=== PATIENT | female | born 1975 | race Caucasian/White ===

== ENCOUNTER 2017-06-21 21:49 | Emergency (ER) | payer OTHER ==
[~2017-06-21] VITALS: Ht 167.6 cm; Wt 73.9 kg
[2017-06-21 22:03] VITALS: Ht 167.6 cm; Wt 73.9 kg
[2017-06-21 22:41] VITALS: BP 132/85
== END 2017-06-21 22:41 | disposition home or self-care (01) ==
LOC: ED 21:49
DX: G40.909 Epilepsy, unspecified, not intractable, without status epilepticus (principal); Z88.6 Allergy status to analgesic agent